=== PATIENT | male | born 1995 | race Caucasian/White ===

== ENCOUNTER 2017-05-30 18:20 | Emergency (ER) | payer BC, MEDICAID ==
[2017-05-30 18:30] VITALS: BP 139/85
[2017-05-30] MEDS ORDERED: Ibuprofen ADULT LIQ* 600 MG/30 ML UDC PO ONE (18:43)
--- NOTE | 2017-05-30 18:43 | UC ---
Throat Pain/Nasal Isac HPI - HPI Summary HPI Summary: fever and sore throat for 2 days---- - History of Current Complaint Chief Complaint: UCRespiratory Stated Complaint: SORE THROAT Time Seen by Provider: 05/30/17 18:31 Hx Obtained From: Patient Onset/Duration: Sudden Onset, Lasting Days - 2, Still Present Severity: Moderate Pain Intensity: 8 Pain Scale Used: 0-10 Numeric Cough: None Associated Signs & Symptoms: Positive: Fever - Allergies/Home Medications Allergies/Adverse Reactions: Allergies Allergy/AdvReac Type Severity Reaction Status Date / Time No Known Allergies Allergy Verified 05/30/17 18:31 Home Medications: Home Medications Dextromethorphan-Phenylephrine [Day-Time Cold/Flu Relief 10-5-325 mg/15Ml] 1 dose PO ONCE 05/30/17 [History Confirmed 05/30/17] PMH/Surg Hx/FS Hx/Imm Hx Previously Healthy: Yes - Surgical History Surgical History: Yes Surgery Procedure, Year, and Place: 2006 - LEFT ankle repair with hardware - Family History Known Family History: Positive: None - Social History Occupation: Employed Full-time Lives: With Family Alcohol Use: Occasionally Substance Use Type: None Smoking Status (MU): Heavy Every Day Tobacco Smoker Have You Smoked in the Last Year: Yes Cessation Counseling: Counseled 3+Min - 10 Min - Immunization History Vaccination Up to Date: Yes Review of Systems Constitutional: Fever, Chills Skin: Negative Eyes: Negative ENT: Sore Throat Respiratory: Negative Cardiovascular: Negative Gastrointestinal: Negative Genitourinary: Negative Motor: Negative Neurovascular: Negative Musculoskeletal: Negative Neurological: Negative Psychological: Negative All Other Systems Reviewed And Are Negative: Yes Physical Exam Triage Information Reviewed: Yes Appearance: No Pain Distress, Well-Nourished, Ill-Appearing Vital Signs: Initial Vital Signs Temp 103.9 F 05/30/17 18:28 Pulse 96 05/30/17 18:28 Resp 18 05/30/17 18:28 BP 139/85 05/30/17 18:28 Pulse Ox 97 05/30/17 18:28 Vital Signs Reviewed: Yes Eye Exam: Normal Eyes: Positive: Conjunctiva Clear ENT Exam: Normal ENT: Positive: Normal ENT inspection, Hearing grossly normal, TMs normal, Tonsillar swelling, Tonsillar exudate. Negative: Nasal congestion, Nasal drainage, Trismus, Muffled/hoarse voice Dental Exam: Normal Neck exam: Normal Neck: Positive: Supple, Nontender, No Lymphadenopathy Respiratory Exam: Normal Respiratory: Positive: Chest non-tender, Lungs clear, Normal breath sounds, No respiratory distress, No accessory muscle use Cardiovascular Exam: Normal Cardiovascular: Positive: RRR, No Murmur, Pulses Normal, Brisk Capillary Refill Abdominal Exam: Normal Abdomen Description: Positive: Nontender, No Organomegaly, Soft. Negative: CVA Tenderness (R), CVA Tenderness (L), Hepatomegaly, Splenomegaly Bowel Sounds: Positive: Present Musculoskeletal Exam: Normal Musculoskeletal: Positive: Strength Intact, ROM Intact, No Edema Neurological Exam: Normal Neurological: Positive: Alert, Muscle Tone Normal Psychological Exam: Normal Skin Exam: Normal Diagnostics - Laboratory Diagnostic Studies Completed/Ordered: RST and Influenza (-) Throat Pain/Nasal Course/Dx - Course Assessment/Plan: tylenol codiene for pain, ibuprofen, prednisone follow with pcp , nicotine education - Differential Dx/Diagnosis Differential Diagnosis/HQI/PQRI: Peritonsillar Abscess, Pharyngitis, Tonsillitis , URI Provider Diagnoses: Viral illness,pharyngitis, nicotine dependent Discharge - Discharge Plan Condition: Stable Disposition: HOME Prescriptions: predniSONE TAB* [Deltasone TAB*] 50 mg PO DAILY #5 tab Patient Education Materials: Fever in Adults (ED), Viral Syndrome (ED) Forms: *Work Release Referrals: Shilo Peng MD [Medical Doctor] - If Needed
[2017-05-30] MEDS ORDERED: Acetaminoph/Cod 120/12 mg LIQ* 5 ML UDC PO ONE (19:21)
== END 2017-05-30 19:50 | disposition home or self-care (01) ==
LOC: UCEAST 18:20
DX: B34.9 Viral infection, unspecified (principal); J02.9 Acute pharyngitis, unspecified; F17.210 Nicotine dependence, cigarettes, uncomplicated
CPT/HCPCS: 87502; 87651; 99202; A9270-GY; G0463

== ENCOUNTER 2017-09-26 01:10 | Emergency (ER) | payer OTHER ==
[2017-09-26 01:20] VITALS: BP 165/82
--- NOTE | 2017-09-26 02:09 | ED ---
Upper Extremity Pain - HPI Summary HPI Summary: 22m presents with sharp pain in left arm for past two weeks. He states he has been feeling shaky and anxious. He denies any SOB. He admits to electric like chest pain on right side of chest that last 30 sec off and on for past two weeks. He states the arm pain also comes and goes. He denies any neck pain. He denies any abdominal pain, diaphoresis, nausea or vomiting. He denies any abdominal pain. He has never had this before. He states pain is left arm is in line down triceps when it occurs and stops at elbow and does not go into shoulder. Some times though the electric pain changes locations. Nothing makes it better or worst. He denies any chest pain at this time has just left arm pain. He denies any pressure like pain. He denies any tightness or cough. He did have grandfather at age 65 that had a heart attack and father had a heart attack when he was young. He denies any history of HTN or DM. He chews tobacco. He denies any swelling in his arm. He denies any recent travel , surgeries, or family history of blood clots. He denies any numbness or tingling. - History of Current Complaint Chief Complaint: EDExtremityUpper Stated Complaint: TIGHTNESS OF FACE Time Seen by Provider: 09/26/17 01:49 - Allergies/Home Medications Allergies/Adverse Reactions: Allergies Allergy/AdvReac Type Severity Reaction Status Date / Time No Known Allergies Allergy Verified 09/26/17 01:21 PMH/Surg Hx/FS Hx/Imm Hx Endocrine/Hematology History: Denies: Hx Diabetes, Hx Thyroid Disease Cardiovascular History: Denies: Hx Hypertension Respiratory History: Denies: Hx Asthma, Hx Chronic Obstructive Pulmonary Disease (COPD) GI History: Denies: Hx Ulcer - Surgical History Surgery Procedure, Year, and Place: 2006 - LEFT ankle repair with hardware Infectious Disease History: No Infectious Disease History: Denies: Hx Clostridium Difficile, Hx Hepatitis, Hx Human Immunodeficiency Virus (HIV), Hx of Known/Suspected MRSA, Hx Tuberculosis, Hx Known/Suspected VRE , Hx Known/Suspected VRSA, History Other Infectious Disease, Traveled Outside the [place] in Last 30 Days - Family History Known Family History: Positive: None - Social History Alcohol Use: Occasionally Substance Use Type: Reports: None Smoking Status (MU): Heavy Every Day Tobacco Smoker Have You Smoked in the Last Year: Yes Review of Systems Negative: Fever Positive: Chest Pain - sharp intermittent right side Positive: Other - sharp pain in left arm All Other Systems Reviewed And Are Negative: Yes Physical Exam Triage Information Reviewed: Yes Vital Signs On Initial Exam: Initial Vitals Temp Pulse Resp BP Pulse Ox 98.7 F 64 14 165/82 99 09/26/17 01:18 09/26/17 01:18 09/26/17 01:18 09/26/17 01:18 09/26/17 01:18 Vital Signs Reviewed: Yes Appearance: Positive: Well-Appearing Skin: Positive: Warm, Dry Head/Face: Positive: Normal Head/Face Inspection Eyes: Positive: Normal, EOMI, TATIANA, Conjunctiva Clear ENT: Positive: Normal ENT inspection, Pharynx normal, TMs normal Respiratory/Lung Sounds: Positive: Clear to Auscultation, Breath Sounds Present , Other - nontender chest wall Cardiovascular: Positive: Normal, RRR Abdomen Description: Positive: Nontender, Soft Bowel Sounds: Positive: Present Musculoskeletal: Positive: Strength/ROM Intact - left arm, Other - good pulses, sensation grossly intact, capillary refill<2 secs, nontender left arm, neg yearsons,. Negative: Edema Left Neurological: Positive: Sensory/Motor Intact Diagnostics - Vital Signs Vital Signs Temp Pulse Resp BP Pulse Ox 09/26/17 01:18 98.7 F 64 14 165/82 99 - Laboratory Lab Statement: Any lab studies that have been ordered have been reviewed, and results considered in the medical decision making process. Course/Dx - Course Course Of Treatment: 22m presents with sharp pain in left arm for past two weeks. He states he has been feeling shaky and anxious. He denies any SOB. He admits to electric like chest pain on right side of chest that last 30 sec off and on for past two weeks. He states the arm pain also comes and goes. He denies any neck pain. He denies any abdominal pain, diaphoresis, nausea or vomiting. He denies any abdominal pain. He has never had this before. He states pain is left arm is in line down triceps when it occurs and stops at elbow and does not go into shoulder. Some times though the electric pain changes locations. Nothing makes it better or worst. He denies any chest pain at this time has just left arm pain. He denies any pressure like pain. He denies any tightness or cough. He did have grandfather at age 65 that had a heart attack and father had a heart attack when he was young. He denies any history of HTN or DM. He chews tobacco. He denies any swelling in his arm. He denies any recent travel, surgeries, or family history of blood clots. on exam lungs CTA. heart RRR. left arm full ROM, neg yearson. nontender abdomen. no edema neurovascular intact. no neck pain and full ROM. discussed that symptoms could be anxiety related. do not suspect blood clot and chest pain location and type do not make me suspcious for cardiac reason. also arm pain does not seem to be a neck issue. told that needs to follow up with primary about symptoms. explained that with family history wants to work on reducing risk factors at this time to prevent a future cardiac event. patient understand and agrees with plan. - Diagnoses Differential Diagnosis/HQI/PQRI: Positive: Sprain, Other - cervical radiculopathy, dvt Provider Diagnoses: Left arm pain, Atypical chest pain, Elevated blood pressure reading Discharge - Discharge Plan Condition: Good Disposition: HOME Patient Education Materials: DASH Eating Plan (ED) Referrals: [facility] [Outside] Additional Instructions: Try ice or heat on area Stretch arm and neck Take ibuprofen for pain every 6 hours Establish care with primary care physician You do have elevated blood pressure at this visit this does not mean that you have hypertension, try reducing salt, suggestion is to follow DASH diet as can help reduce risk of develop hypertension in future With your family history want to reduce risk factors with maintaining a health weight and regular exercise Return to ED if develop persistent chest pain or any new or worsening symptoms
== END 2017-09-26 02:16 | disposition home or self-care (01) ==
LOC: ED 01:10
DX: M79.602 Pain in left arm (principal); R07.89 Other chest pain; R03.0 Elevated blood-pressure reading, without diagnosis of hypertension; F17.220 Nicotine dependence, chewing tobacco, uncomplicated; Z82.49 Family history of ischemic heart disease and other diseases of the circulatory system
CPT/HCPCS: 99282

== ENCOUNTER 2018-03-28 12:27 | Emergency (ER) | payer BC, OTHER ==
[2018-03-28 13:23] LABS: ABS Basophils 0.1 10^3/ul (0-0.2); ABS Eosinophils 0.1 10^3/ul (0-0.6); ABS Lymphocytes 2.1 10^3/ul (1.0-4.8); ABS Monocytes 0.8 10^3/ul (0-0.8); ABS Neutrophils 6.2 10^3/ul (1.5-7.7); ABS Nucleated RBC 0 10^3/ul; Eosinophil % 1.2 % (0-6); Hematocrit 46 % (42-52); Hemoglobin 15.9 g/dl (14.0-18.0); Lymphocyte % 22.8 % (25-47); Mean Corpuscular HGB Conc 34 g/dl (31-36); Mean Corpuscular Hemoglobin 29 pg (27-31); Mean Corpuscular Volume 86 fL (80-94); Mean Platelet Volume 9.3 um3 (7.4-10.4); Nucleated Red Blood Cells % 0.1; Platelet Count 247 10^3/ul (150-450); Red Blood Count 5.42 10^6/ul (4.00-5.40); Red Cell Distribution Width 13 % (10.5-15); White Blood Count 9.2 10^3/ul (3.5-10.8)
[2018-03-28 13:30] LABS: INR 0.91 (0.77-1.02)
[2018-03-28 13:40] LABS: EGFR Non-African American 106.5 (>60)
--- NOTE | 2018-03-28 13:59 | RAD ---
HISTORY: syncope COMPARISONS: None VIEWS: 4: Frontal dual-energy and lateral views of the chest. FINDINGS: CARDIOMEDIASTINAL SILHOUETTE: The cardiomediastinal silhouette is normal. PARISA: The parisa are normal. PLEURA: The costophrenic angles are sharp. No pleural abnormalities are noted. LUNG PARENCHYMA: The lungs are clear. ABDOMEN: The upper abdomen is clear. There is no subphrenic gas. BONES AND SOFT TISSUES: No bone or soft tissue abnormalities are noted. OTHER: None. IMPRESSION: NO ACTIVE CARDIOPULMONARY DISEASE.
--- NOTE | 2018-03-28 14:13 | RAD ---
INDICATION: Syncope COMPARISON: None TECHNIQUE: Noncontrast axial source images were acquired from the skull base to the vertex. FINDINGS: Ventricles/sulci: The ventricles and cisterns are normal in size and configuration for age. Brain parenchyma: There is no focal parenchymal finding, evidence of intracranial mass, or intracranial mass effect. Intracranial hemorrhage:None. Extra-axial spaces: There are no abnormal extra axial fluid collections or evidence of extra-axial mass. Calvarium: There is no calvarial fracture or other calvarial abnormality. Scalp: There is no evidence of scalp or extracalvarial soft tissue abnormality. Paranasal sinuses/mastoid: The paranasal sinuses and mastoid air cells are clear. Other: None. IMPRESSION: No acute intracranial findings
--- NOTE | 2018-03-28 14:16 | RAD ---
INDICATION: Fall. Possible neck injury COMPARISON: None TECHNIQUE: Noncontrast axial source images was performed from the skull base to the thoracic inlet. Coronal and and sagittal reformatted images were generated. FINDINGS: Vertebrae: There is no fracture or acute focal bony lesion. Alignment: The craniocervical junction appears normal. There is cervical spine straightening. Central Canal: There are no significant CT abnormalities of the central canal or foramina. MR imaging is a more sensitive method to evaluate the canal and foramina. Intervertebral disc spaces: The disc spaces are maintained. Brain: The visualized brain appears unremarkable. Soft tissues: The visualized soft tissue elements of the neck are unremarkable. The prevertebral soft tissues appear normal. The lung apices are clear. IMPRESSION: CERVICAL SPINE STRAIGHTENING, OTHERWISE NEGATIVE.
[2018-03-28] MEDS ORDERED: NS 0.9% 1000 ML* 1,000 ML IV ONE (14:35)
--- NOTE | 2018-03-28 14:36 | RAD ---
Indication: Syncope. Facial injury. CT of the facial bones was obtained in the axial plane. Sagittal and coronal reconstructed images were obtained. The visualized cervical spine is unremarkable. The mandible demonstrates no evidence of fracture. The mandibular joints are unremarkable. The skull base demonstrates no fracture. The maxilla and maxillary sinuses are unremarkable. The nasal arch is otherwise unremarkable. Zygoma and zygomatic arch is unremarkable. The visualized cervical spine is grossly unremarkable. Mastoid air cells and paranasal sinuses are otherwise unremarkable IMPRESSION: No fracture of the facial bones is identified.
[2018-03-28 14:38] LABS: Urine Appearance Clear; Urine Blood Negative (Negative); Urine Color Yellow; Urine Ketones Negative (Negative); Urine Protein Negative (Negative); Urine Specific Gravity 1.019 (1.010-1.030); Urine Urobilinogen Negative (Negative)
[2018-03-28 17:33] VITALS: BP 120/64
--- NOTE | 2018-03-28 22:35 | ED ---
Denia Pandya Jade, scribed for Mallika Herrera MD on 03/28/18 at 1247 . Syncope/Near Syncope - HPI Summary HPI Summary: Pt is a 22 y/o male who presents to the ED s/p syncope at [facility] today at 12: 39pm. He was at work when he suddenly became dizzy and passed out on the concrete outside. As per co-worker, his speech became slurred before he passed out. Pt landed on his face, chipped his tooth and has a swollen upper lip. His left ankle is also sore, with pain at a 3/10 in severity. He is unsure whether he had a bloody nose. Pt is accompanied by his brother. Pt states he was thirst prior to the syncope. Pt also admits he drank a large amount of alcohol this weekend. Pt's workpalce is not airconditioned and it was very hot in pt's workplace today. PMHx chest pain recently but he denies chest pain today, and recently had high liver enzymes with cause unknown that resolved. Pt denies PMHx syncope. FHx CAD and ID. He is a heavy every day smoker. Pt does not take any home medications. - History Of Current Complaint Chief Complaint: EDSyncope Hx Obtained From: Patient, Family/Insurance Sales Specialist - Brother Onset/Duration: Sudden Onset, Lasting Hours, Resolved Timing: Constant Context: Witnessed - By coworker, Loss Of Consciousness Activity At Onset: Exertion - at work, lifting Associated Head Trauma: Yes Aggravating Factor(s): Nothing Alleviating Factor(s): Spontaneous Resolution Associated Signs And Symptoms: Dizzy, Other - Slurred speech, resolved Frequency: Episodes x___ - 1 - Allergies/Home Medications Allergies/Adverse Reactions: Allergies Allergy/AdvReac Type Severity Reaction Status Date / Time No Known Allergies Allergy Verified 03/28/18 13:19 Home Medications: Home Medications NK [No Home Medications Reported] 03/28/18 [History Confirmed 03/28/18] PMH/Surg Hx/FS Hx/Imm Hx Previously Healthy: No Endocrine/Hematology History: Denies: Hx Diabetes, Hx Thyroid Disease Cardiovascular History: Reports: Other Cardiovascular Problems/Disorders - Chest pain, but has not been evaluated for this Denies: Hx Hypertension Respiratory History: Denies: Hx Asthma, Hx Chronic Obstructive Pulmonary Disease (COPD) GI History: Reports: Other GI Disorders - Recent high liver enzymes due to unknown cause, but resolved spontaneously Denies: Hx Ulcer Neurological History: Reports: Other Neuro Impairments/Disorders - NEGATIVE: syncope Denies: Hx Seizures - Surgical History Surgery Procedure, Year, and Place: 2006 - LEFT ankle repair with hardware Infectious Disease History: No Infectious Disease History: Denies: Hx Clostridium Difficile, Hx Hepatitis, Hx Human Immunodeficiency Virus (HIV), Hx of Known/Suspected MRSA, Hx Tuberculosis, Hx Known/Suspected VRE , Hx Known/Suspected VRSA, History Other Infectious Disease, Traveled Outside the [place] in Last 30 Days - Family History Known Family History: Positive: Cardiac Disease - CAD, ID - Social History Occupation: Employed Full-time Alcohol Use: Occasionally Substance Use Type: Reports: None Smoking Status (MU): Heavy Every Day Tobacco Smoker Have You Smoked in the Last Year: Yes Review of Systems Negative: Fever Positive: Other - Chipped left tooth, swollen upper lip Positive: Chest Pain - recently, but not today Respiratory: Negative Gastrointestinal: Negative Positive: Arthralgia - Left ankle pain Neurological: Other - Dizziness Positive: Syncope, Slurred Speech - Resolved Psychological: Normal All Other Systems Reviewed And Are Negative: Yes Physical Exam - Summary Physical Exam Summary: Appearance: Well-appearing, no pain distress, well-nourished Skin: Warm, color reflects adequate perfusion, dry HEENT: Chipped left central incisor, swelling and abrasion to left upper lip, no laceration to lips, no intraoral trauma, uvula midline, conjunctiva clear, PERRL, EOMI, no nystagmus Neck: Supple, no nodes, no JVD, no spinal tenderness Respiratory: Lungs clear, normal breath sounds, no respiratory distress, ribs non-tender Cardio: RRR, No murmur, pulses normal, brisk capillary refill Abdomen: Soft, nontender Bowel sounds: Present Musculoskeletal: Strength Intact/ROM intact, no calf tenderness, no edema, no ankle deformity, full ROM, no bony tenderness Psychological: Normal Neuro: A&O x3, CN II-XII intact, motor function 5/5, sensation intact, cerebellar normal Triage Information Reviewed: Yes Vital Signs On Initial Exam: Initial Vitals Temp Pulse Resp BP Pulse Ox 97.6 F 69 16 140/87 99 03/28/18 12:38 03/28/18 12:38 03/28/18 12:38 03/28/18 12:38 03/28/18 12:38 Vital Signs Reviewed: Yes Diagnostics - Vital Signs Vital Signs Temp Pulse Resp BP Pulse Ox 03/28/18 12:38 97.6 F 69 16 140/87 99 - Laboratory Result Diagrams: 03/28/18 12:58 03/28/18 12:58 Lab Statement: Any lab studies that have been ordered have been reviewed, and results considered in the medical decision making process. - EKG 12:32 Cardiac Rate: NL - 68 bpm EKG Rhythm: Sinus Rhythm - Arhythmia EKG Interpretation: Normal AVCT, prolonged IVCT (114) nonspecific, normal QTc, no acute changes EKG Comparison: No Significant Change - No prior to compare Re-Evaluation - Re-Evaluation First Eval Change: Improved Comment: No CP, lungs are clear. Results given with fiance and brother in the room. Pt will be discharged. Course/Dx Course Of Treatment: Pt is a 22 y/o male who presents s/p syncope, dizziness and slurred speech that have resolved in the ED. CT brain is neg. Labs do not reveal any cause for syncope, and include normal troponin, d dimer, and normal LFT's. CK was elevated at 568. An EKG revealed normal rate at 68 bpm, sinus arrhythmia, normal AV CT, prolonged IVCT (114) nonspecific, normal QTc, and no acute changes. PMHx of CP, no PMHx of syncope. FHx CAD and ID. Pt is a heavy every day smoker. Dx are syncope and early rhabdomyolosis (with elevated CK at 568). Pt had IV hydration while in ED with improvement. Pt is discharged home. - Diagnoses Provider Diagnoses: Syncope, Rhabdomyolysis Discharge - Sign-Out/Discharge Documenting (check all that apply): Discharge/Admit/Transfer - Discharge - Discharge Plan Condition: Stable Disposition: HOME Patient Education Materials: Syncope (ED), Rhabdomyolysis (ED) Forms: *Work Release Referrals: [facility] [Outside] - 2 Days Additional Instructions: Your CK muscle enzyme level was elevated. You need to continue drinking fluids to flush this from your system, and avoid taking creatine powder. Your CT's and labs did not show any serious cause for your passing out (syncope ) spell today. You need definite follow up. Please call the [facility] to get established with a primary care provider. Return to the ER if you have any new or worsening symptoms. - Billing Disposition and Condition Condition: STABLE Disposition: Home The documentation as recorded by the Denia rico Jade accurately reflects the service I personally performed and the decisions made by me, Mallika Herrera MD.
== END 2018-03-28 17:32 | disposition home or self-care (01) ==
LOC: ED 12:27
DX: R55 Syncope and collapse (principal); M62.82 Rhabdomyolysis; S09.93XA Unspecified injury of face, initial encounter; S02.5XXA Fracture of tooth (traumatic), initial encounter for closed fracture; Z82.49 Family history of ischemic heart disease and other diseases of the circulatory system; Z72.0 Tobacco use; W19.XXXA Unspecified fall, initial encounter; Y92.89 Other specified places as the place of occurrence of the external cause
CPT/HCPCS: 36415; 70450; 70486; 71046; 72125; 80053; 80307; 80320; 81003; 82140; 82550; 83605; 83735; 84443; 84484; 85025; 85379; 85610; 85730; 93005; 96360; 99282; G0480